=== PATIENT | male | born 1985 | race Caucasian/White ===

== ENCOUNTER 2017-10-03 14:38 | Emergency (ER) | payer OTHER ==
[~2017-10-03] VITALS: Ht 175.3 cm; Wt 130.5 kg
[2017-10-03] MEDS ORDERED: GLUCOPHAGE PO (14:48)
[2017-10-03] MEDS ORDERED: COLCHICINE0.6 M1 PO (15:05)
[2017-10-03] MEDS ORDERED: NAPROSYN500 M1 PO (15:05)
[2017-10-03 15:29] VITALS: BP 142/101
== END 2017-10-03 15:27 | disposition home or self-care (01) ==
LOC: ED 14:38
DX: M10.071 Idiopathic gout, right ankle and foot (principal); E11.9 Type 2 diabetes mellitus without complications; Z79.84 Long term (current) use of oral hypoglycemic drugs
CPT/HCPCS: J1885